=== PATIENT | male | born 1955 | race Caucasian/White ===

== ENCOUNTER 2017-08-13 01:14 | Observation (INO) | payer MEDICARE, OTHER ==
[2017-08-13 02:26] LABS: ADD MAN DIFF? NO
[2017-08-13 02:31] LABS: WHITE BLOOD COUNT 5.8 10^3/ul (4.8-10.8)
[2017-08-13 02:31] LABS: BASOPHILS % 0.2 % (0.0-2.0); EOSINOPHILS # 0.1 10^3/ul (0.0-0.5); EOSINOPHILS % 0.9 % (0.0-7.0); HEMATOCRIT 38.7 % (42.0-52.0); HEMOGLOBIN 13.6 g/dl (14.0-18.0); LYMPHOCYTES # 0.8 10^3/ul (0.8-2.9); LYMPHOCYTES % 13.8 % (15.0-51.0); MEAN CORPUSCULAR HEMOGLOBIN 32.7 pg (29.0-33.0); MEAN CORPUSCULAR HGB CONC 35.1 g/dl (32.0-37.0); MEAN PLATELET VOLUME 9.3 fl (7.4-10.4); MONOCYTE # 0.4 10^3/ul (0.3-0.9); MONOCYTES % 7.1 % (0.0-11.0); NEUTROPHIL # 4.4 10^3/ul (1.6-7.5); NEUTROPHILS % 76.6 % (39.0-77.0); PLATELET COUNT 139 10^3/UL (140-415); RED BLOOD COUNT 4.16 10^6/ul (4.70-6.10); RED CELL DISTRIBUTION WIDTH 14.6 % (11.5-14.5)
[2017-08-13 02:50] LABS: INR 0.93; PROTIME 12.5 Sec (11.9-14.9)
[2017-08-13 02:51] LABS: ALANINE AMINOTRANSFERASE 83 IU/L (13-69); ALBUMIN/GLOBULIN RATIO 1.33; ALKALINE PHOSPHATASE 85 IU/L (42-121); ANION GAP 15 (8-16); ASPARTATE AMINO TRANSFERASE 67 IU/L (15-46); BILIRUBIN,INDIRECT 0.4 mg/dl (0-1.1); BILIRUBIN,TOTAL 0.4 mg/dl (0.2-1.3); BLOOD UREA NITROGEN 23 mg/dl (7-20); CALCIUM 9.8 mg/dl (8.4-10.2); CARBON DIOXIDE 25 mmol/L (21-31); CHLORIDE 108 mmol/L (97-110); CREATININE 1.23 mg/dl (0.61-1.24); GLUCOSE 119 mg/dl (70-220); LIPASE 49 U/L (23-300); PARTIAL THROMBOPLASTIN TIME 27.1 Sec (25.0-35.0); POTASSIUM 4.1 mmol/L (3.5-5.1); SODIUM 144 mmol/L (135-144)
[2017-08-13] MEDS ORDERED: ACETAMINOPHEN 325 MG TAB PO (03:30)
[2017-08-13] MEDS ORDERED: NACL 0.9% 3 ML SYG IV (03:30)
[2017-08-13] MEDS: ONDANSETRON 4 MG INJ IV (03:42)
[2017-08-13] MEDS: SOD CHLORIDE 0.9% 1,000 ML IV (03:42)
[2017-08-13] MEDS: morphine 2 MG INJ IV (03:42)
[2017-08-13] MEDS ORDERED: LORAZEPAM 2 MG INJ (05:07)
[2017-08-13] MEDS: LORAZEPAM 2 MG INJ IV (05:11)
[2017-08-13 05:52] LABS: CHOL/HDL RATIO 2.5 RATIO; CHOLESTEROL 129 mg/dl (100-200); HDL CHOLESTEROL 51 mg/dl (30-78); LDL CHOLESTEROL,CALCULATED 54 mg/dl; TRIGLYCERIDES 118 mg/dl (0-149)
[2017-08-13 05:52] LABS: MAGNESIUM 1.6 mg/dl (1.7-2.5)
[2017-08-13 06:17] LABS: HEMOGLOBIN A1C 4.6 % (0-5.9)
[2017-08-15 11:16] LABS: LYMPHOCYTE - % CD4 (HELPER) 38 % (30-61); LYMPHOCYTE - %CD8 (SUPPRESSOR) 36 % (12-42); LYMPHOCYTE - ABSOLUTE 863 cells/uL (850-3900); LYMPHOCYTE - ABSOLUTE CD4 326 cells/uL (490-1740); LYMPHOCYTE - ABSOLUTE CD8 314 cells/uL (180-1170); LYMPHOCYTE - CD4/CD8 RATIO 1.04 (0.86-5.00)
== END 2017-08-13 14:26 | disposition left against medical advice (07) ==
LOC: E/R 01:14 → MS1 03:03
DX: T18.5XXA Foreign body in anus and rectum, initial encounter (principal); J45.909 Unspecified asthma, uncomplicated; F31.9 Bipolar disorder, unspecified; X58.XXXA Exposure to other specified factors, initial encounter
CPT/HCPCS: 36415; 74018; 80053; 80061; 83036; 83690; 83735; 84443; 85025; 85610; 85730; 86360; 87536; 96374; 96375; 99285-25